=== PATIENT | female | born 1940 | race Two or more races ===

== ENCOUNTER 2025-03-29 18:34 | Inpatient (IN) | payer OTHER, MEDICAID ==
[~2025-03-29] VITALS: Ht 167.6 cm; Wt 68.2 kg
[~2025-03-29 18:34] MED LIST: ATOR20TA50 PO; DONE1TAB88 PO; LEVO125T7 PO; MEMA1TAB5 PO
--- NOTE | 2025-03-29 18:47 | ECG ---
[facility] Test Date: 2025-03-29 Test Time: 18:46:25 Pat Name: LORENA NAJERA Department: ED Room: Gender: F Slate Cutter Operator: JULIO : 1940 Requested By: J CARLOS LI Order Number: [id number] Reading MD: Alverto Briggs Measurements Intervals [place] Rate: 70 P: 39 [place]: 220 QRS: -14 QRSD: 92 T: 7 QT: 423 QTc: 457 Interpretive Statements Sinus rhythm Atrial premature complexes in couplets Prolonged [place] interval Low voltage, precordial leads Electronically Signed On 03-29-2025 21:17:46 PDT by Alverto Briggs Please click the below link to view image of tracing.
[2025-03-29] MEDS: SODIUM CHLORIDE 0.9% 1,000 ML IV ONE ×3 (19:06→21:00)
[2025-03-29 19:09] VITALS: TEMP 97.4
[2025-03-29 19:20] LABS: Basophils # (auto) 0 10 ^3/uL (0-0.2); Basophils % (auto) 0.4 % (0.0-2.0); Eosinophils # (auto) 0 10 ^3/uL (0-0.8); Eosinophils % (auto) 0.4 % (0.0-7.0); Hematocrit 41.1 % (36.0-46.0); Hemoglobin 13.9 g/dL (12.2-16.2); Lymphocytes # (auto) 0.9 10 ^3/uL (0.4-5.4); Lymphocytes % (auto) 8.8 % (10.0-50.0); Mean Corpuscular Hgb Conc. 33.8 g/dL (32.0-36.0); Mean Corpuscular Volume 94.7 fL (80.0-100.0); Monocytes # (auto) 0.5 10 ^3/uL (0-1.3); Monocytes % (auto) 4.5 % (0.0-12.0); Neutrophils % (auto) 85.9 % (37.0-80.0); Platelet Count (auto) 169 10^3/uL (140-450); Red Blood Cells 4.34 10^6/uL (4.0-5.20); Red Cell Distribution Width 13.6 % (11.8-14.3); White Blood Cell 10.5 10^3/uL (4.4-10.8)
--- NOTE | 2025-03-29 19:27 | ED.PDOC ---
History of Present Illness HPI Comments 85 y/o F is BIBA from home for 3x day history of ALOC. Per EMS report, family endorses on patient acting unusual from her usual baseline, stumbling and falling multiple times in addition to being lethargic and sleeping throughout the day. Patient has a history of dementia (A&Ox2 baseline), HLD, HTN, and hypo thyroidism. No recent falls, head injuries, or possible overdosing of her medications reported. Vitals were noted to have been within normal limits and stable, with exception of her blood pressure dropping to 86/49 2x minutes prior to arrival. Patient was started on IV fluids. No chest pain, shortness of breath, fever, chills, or further associated symptoms reported. Further history is limited, due to patient's current condition and absence of family/business center manager historians. Chief Complaint: ALOC Time Seen by MD: 18:40 Reviewed Notes: Nurses Notes, Lockstitch Hemmer Notes, Medications, Allergies Allergies: Coded Allergies: NO KNOWN ALLERGIES (Unverified , 03/29/25) Information Source: Patient, Emergency Med Personnel Mode of Arrival: EMS Severity: Moderate Timing: Days Duration: Since onset Prehospital treatment: 12 Lead EKG, Accucheck, Oil Spraying Machine Operator, IVF Review of Systems: REVIEW OF SYSTEMS: No fever, no chills, or fatigue HEENT: No sore throat, no earache, no congestion, no neck pain. Cardiac: No chest pain. No palpitations. Lungs: No shortness of breath, no cough. GI: No nausea, no vomiting, no diarrhea, no constipation, no abdominal pain : No dysuria, frequency, or urgency. No hematuria. Musculoskeletal: No joint pain , no joint swelling, no extremity edema. Skin: No rash, no itching. Neuro: ALOC, no headache, no dizziness, no weakness Vital Signs Vital Signs Date Time Temp Pulse Resp B/P (MAP) Pulse Ox O2 Delivery O2 Flow Rate FiO2 03/29/25 21:20 81 18 96 Room Air* 0 21 21 03/29/25 21:00 120/63 (82) 03/29/25 19:09 97.4 97.4 Physical Exam General: Awake, alert and oriented to self and time. Appears unwell. Skin: Skin in warm, dry and intact. Appropriate color for ethnicity. HEENT: The head is normocephalic and atraumatic. Conjunctivae are clear without exudates or hemorrhage. Sclera is non-icteric. EOM are intact. No signs of nystagmus. Eyelids are normal in appearance without swelling or lesions. Oral mucosa is pink and moist Neck: The neck is supple with normal range of motion. No JVD. Cardiac: Heart rate and rhythm are normal. No murmurs, gallops, or rubs are auscultated. Respiratory: No signs of respiratory distress. Lung sounds are clear in all lobes bilaterally without rales, rhonchi, or wheezes. Abdominal: Abdomen is soft, non-tender without distention, guarding or rigidity. Bowel sounds are present and normoactive in all four quadrants. Extremities: Upper and lower extremities are atraumatic in appearance without deformity or edema. Neurological: The patient is awake, alert and oriented to person, place, and time with normal speech. Speech is clear. There is no facial asymmetry. Psychiatric: Appropriate mood and affect. Good judgement and insight. Past Medical History PAST MEDICAL HISTORY: Dementia, High Lipids, HTN, Thyroid (hypothyroidism) Past Medical History (Other): Baseline is A&Ox2 (self and time) Surgical History: Unknown, Unobtainable TIP MENDER History: Unknown, Unobtainable Family History Family History: Unknown, Unobtainable Social History Smoker: Unknown, Unobtainable Alcohol: Unknown, Unobtainable Drugs: Unknown, Unobtainable Lives In: Assisted Care Was a procedure done? Was a procedure done?: No EKG EKG : Pulse Rate (adult): 70 [place]: Normal Cardiac Rhythm: NSR Block: None Hypertrophy: None ST: Normal Comments No STEMI Differential Dx Considerations may include: Differential diagnosis considered includes but not limited to intracranial hemorrhage, stroke, head injury, seizure, metabolic disturbance, electrolyte imbalance, infection, substance intoxication, psychiatric cause, other systemic illness, other X-Ray, Labs, Meds, VS Vital Signs Date Time Temp Pulse Resp B/P (MAP) Pulse Ox O2 Delivery O2 Flow Rate FiO2 03/29/25 21:20 81 18 96 Room Air* 0 21 21 03/29/25 21:00 84 12 120/63 (82) 95 03/29/25 20:00 89 03/29/25 19:27 70 03/29/25 19:09 97.4 77 16 138/59 (85) 94 97.4 6/11/25 18:46 70 03/29/25 18:44 97.8 67 16 86/49 (61) 94 97.8 Lab Test 03/29/25 21:39 03/29/25 20:50 03/29/25 20:12 03/29/25 19:36 Range/Units Prothrombin Time 10.5 9.3-11.8 sec Prothrombin Time INR 0.99 0.9-1.15 Troponin I High Sensitivity 210 *H </=34 ng/L Plasma/Serum Blood Alcohol < 3.0 <10 mg/dL Lactic Acid Level 2.9 *H 0.4-2.0 mmol/L Blood Gas Specimen Type Arterial Blood Gas Sample Site Left radial Blood Gas Patient Temperature 37.0 Arterial Blood Date Drawn [id number] Arterial Blood pH 7.392 7.350-7.450 Arterial Blood Partial Pressure CO2 34.1 32.0-45.0 mmHg Arterial Blood Partial Pressure O2 71.8 L 83.0-108.0 mmHg Arterial Blood HCO3 20.3 L 21.0-28.0 mmol/L Arterial Blood Oxygen Saturation 93.1 L 94.0-98.0 % Arterial Blood Base Excess -3.8 L -2.0-3.0 mmol/L Arterial Blood Oxyhemoglobin 91.9 L 94.0-98.0 % Arterial Blood Carboxyhemoglobin 0.8 0.5-1.5 % Arterial Blood Methemoglobin 0.5 0.0-1.5 % Capo Test Yes Blood Gas Total Hemoglobin 14.50 12.0-16.0 g/dL Blood Gas Modality Room air FiO2 % 21.0 Urine Color Light-yellow Yellow Urine Clarity Turbid H Clear Urine pH 7.0 5.0-9.0 Urine Specific [place] 1.007 1.001-1.035 Urine Protein 1+ H Negative Urine Ketones Negative Negative Urine Blood Trace H Negative /uL Urine Nitrite Negative Negative Urine Bilirubin Negative Negative Urine Urobilinogen Normal Negative mg/dL Urine Leukocyte Esterase Negative Negative /uL Urine RBC 3 0 - 4 /hpf Urine Microscopic WBC 15 H 0-5 /HPF Urine Squamous Epithelial Cells Few <5 /hpf Urine Amorphous Crystals Few None Seen /hpf Urine Bacteria Few H None Seen /hpf Urine Glucose Normal Normal mg/dL Urine Opiates Screen Neg NEGATIVE Urine Fentanyl Screen Neg NEGATIVE Urine Barbiturates Screen Neg NEGATIVE Urine Phencyclidine Screen Neg NEGATIVE Urine Amphetamines Screen Neg NEGATIVE Urine Benzodiazepines Screen Neg NEGATIVE Urine Cocaine Screen Neg NEGATIVE Urine Cannabinoids Screen Neg NEGATIVE Test 03/29/25 19:00 Range/Units White Blood Count 10.5 4.4-10.8 10^3/uL Red Blood Count 4.34 4.0-5.20 10^6/uL Hemoglobin 13.9 12.2-16.2 g/dL Hematocrit 41.1 36.0-46.0 % Mean Corpuscular Volume 94.7 80.0-100.0 fL Mean Corpuscular Hemoglobin 32.0 28.0-32.0 pg Mean Corpuscular Hemoglobin Concent 33.8 32.0-36.0 g/dL Red Cell Distribution Width 13.6 11.8-14.3 % Platelet Count 169 140-450 10^3/uL Mean Platelet Volume 8.4 6.9-10.8 fL Neutrophils (%) (Auto) 85.9 H 37.0-80.0 % Lymphocytes (%) (Auto) 8.8 L 10.0-50.0 % Monocytes (%) (Auto) 4.5 0.0-12.0 % Eosinophils (%) (Auto) 0.4 0.0-7.0 % Basophils (%) (Auto) 0.4 0.0-2.0 % Neutrophils # (Auto) 9.0 H 1.6-8.6 10 ^3/uL Lymphocytes # (Auto) 0.9 0.4-5.4 10 ^3/uL Monocytes # (Auto) 0.5 0-1.3 10 ^3/uL Eosinophils # (Auto) 0 0-0.8 10 ^3/uL Basophils # (Auto) 0 0-0.2 10 ^3/uL Nucleated Red Blood Cells 0.0 % Sodium Level 145 136-145 mmol/L Potassium Level 3.7 3.5-5.1 mmol/L Chloride Level 110 H 98-107 mmol/L Carbon Dioxide Level 21 20-31 mmol/L Anion Gap 14 5-15 Blood Urea Nitrogen 17 9-23 mg/dL Creatinine 1.11 H 0.550-1.02 mg/dL Glomerular Filtration Rate Calc 49 >90 mL/min BUN/Creatinine Ratio 15.3 10.0-20.0 Serum Glucose 108 H 74-106 mg/dL Lactic Acid Level 3.3 *H 0.4-2.0 mmol/L Calcium Level 10.3 8.7-10.4 mg/dL Magnesium Level 1.9 1.6-2.6 mg/dL Total Bilirubin 0.8 0.2-1.0 mg/dL Aspartate Amino Transferase (AST) 24 13-40 U/L Alanine Aminotransferase (ALT) 23 7-40 U/L Alkaline Phosphatase 98 46-116 U/L Troponin I High Sensitivity 106 *H </=34 ng/L B-Type Natriuretic Peptide 39.82 0-100 pg/mL Total Protein 7.2 5.7-8.2 g/dL Albumin 4.8 3.2-4.8 g/dL Lipase 50 12-53 U/L Thyroid Stimulating Hormone (TSH) 19.14 H 0.55-4.78 uIU/mL Current Medications Medications (Trade) Dose Ordered Sig/Alphonse Route Start Time Stop Time Status Last Admin Sodium Chloride 1,000 ml @ 1,000 mls/hr Q1H ONCE IV 03/29/25 18:45 03/29/25 19:44 DC 03/29/25 19:06 Vancomycin HCl 250 ml @ 250 mls/hr ONCE ONCE IV 03/29/25 20:00 03/29/25 20:59 DC 03/29/25 20:36 Ceftriaxone Sodium 50 ml @ 100 mls/hr ONCE ONCE IV 03/29/25 20:00 03/29/25 20:29 DC 03/29/25 20:05 Sodium Chloride 1,000 ml @ 1,000 mls/hr Q1H ONCE IV 03/29/25 20:00 03/29/25 20:59 DC 03/29/25 21:00 [place] [id number] Ph: [phone] DIAGNOSTIC IMAGING Diagnostic Imaging Report : [id number] Signed PATIENT: LORENA NAJERA ACCT: [id number] UNIT: [id number] : 1940 LOC: ER ROOM / BED: / AGE / SEX: 85 / F ADM STATUS: REG ER SERVICE 285 ORDERING PHYSICIAN: J CARLOS LI MD PROCEDURE(s): CXR1 - CHEST XRAY 1 VIEW REASON: AMS ORDER NUMBER(s): [id number], ACCESSION NUMBER(s): [id number] CHEST RADIOGRAPH Indication: AMS Technique: Single frontal view of the chest was obtained Comparison: None FINDINGS: Lines and Tubes: None Lungs: No focal consolidation. Bronchovascular crowding due to low lung volumes. Mild elevation of the right hemidiaphragm. Pleura: No effusion. No pneumothorax. Cardiomediastinal contours: Unremarkable Bones: No acute osseous abnormality. IMPRESSION: No acute cardiopulmonary disease. Mild elevation of the right hemidiaphragm. ATED BY: KAREN KAYE DO DICTATED DATE/TIME: 03/29/251952 SIGNED BY: KAREN KAYE DO SIGNED DATE/TIME: 03/29/251952 CC: EXAM: CT HEAD WITHOUT CONTRAST INDICATION: r/o ich, ams TECHNIQUE: CT of the head without intravenous contrast. Radiation Dose : 1. Head: CT Dose: CTDI volume is 63.15 mGy. Dose-length product is 1153.27 mGy*cm The dose indicators for CT are the volume Computed Tomography (CT) Dose Index (CTDIvol) and the Dose Length Product (DLP), and are measured in units of mGy and mGy-cm, respectively. These indicators are not patient dose, but values generated from the CT scanner acquisition factors. The report includes radiation exposure data for exposures received during this examination. COMPARISON: None FINDINGS: There is no evidence of acute intracranial hemorrhage, extra-axial collection, mass effect, midline shift, herniation or hydrocephalus. The ventricles, sulci and cisterns are age appropriate. The andersen-white differentiation is intact. Patchy periventricular and subcortical white matter hypoattenuation is nonspecific but may be related to small vessel ischemic disease. The visualized paranasal sinuses and mastoid air cells are clear. The surrounding soft tissues and osseous structures are unremarkable. Hyperostosis frontalis interna noted. IMPRESSION: 1. No acute intracranial abnormality. Radiation optimization: All CT scans at this facility use at least one of these dose optimization techniques: automated exposure control mA and/or kV adjustment per patient size (includes targeted exams where dose is matched to clinical indication) or iterative reconstruction. Time of 1ST Reevaluation: 19:10 Reevaluation 1ST: Unchanged Patient Education/Counseling: Other (Patient is altered) Family Education/Counseling: No Family Present Sepsis Sepsis Reasesment Focused Exam Orders: Laboratory Tests 03/29/25 19:00: Lactic Acid Level 3.3 03/29/25 20:50: Lactic Acid Level 2.9 Departure 1 Departure Time of Disposition: 20:00 Impression: Primary Impression: Altered mental status Additional Impressions: Elevated troponin NSTEMI (non-ST elevated myocardial infarction) Disposition: ADMITTED INPATIENT Condition: Stable Comments 75-year-old female who presents to the emergency department with lethargy altered mental status. Workup reveals elevated lactic acid. Antibiotics and IV fluids initiated for suspected sepsis. Troponin increasing. Case was discussed with Dr. Chino who initiated enoxaparin. Patient admitted to hospitalist service for further treatment, evaluation and monitoring. Extensive evaluation was performed in attempt to identify or rule out: (See differential diagnosis section) The following tests were ordered, and results were reviewed by me and discussed with patient: (See diagnostic results section) The following test were independently interpreted by me: EKG I reviewed and agreed with the following test results read by other providers: Chest x-ray I reviewed the following notes from the pt's past medical encounters: N/A Additional information was gathered from interviewing the following independent historians: EMS personnel Discussion of management or test interpretation with external physician/other qualified health rn progressive care unit: N/A Addressed an acute or chronic illness that poses a threat to life or bodily function: Lactic acidemia, NSTEMI , sepsis Decision regarding hospitalization or escalation of hospital level of care: Risk and benefits of admission for further treatment of patient's condition was considered. Due to patient's current clinical condition, high risk of decline and poor outcome if discharged and need for further inpatient management and monitoring, patient will be admitted to the hospital. Drug therapy requiring intensive monitoring for toxicity: N/A Parenteral controlled substances: N/A Decision regarding elective major surgery with identified patient or procedure risk factors: N/A Decision regarding emergency major surgery: N/A Decision not to resuscitate or to de-escalate care because of poor prognosis: N/A Diagnosis or treatment significantly limited by social determinants of health: N/A Critical Care Note Critical Care Time?: No Stability Stability form required: No Heart Score Heart Score: Heart Score Response (Comments) Value History N/A 0 EKG N/A 0 Age N/A 0 Risk Factors N/A 0 Troponin N/A 0 Total 0 I personally scribed for J CARLOS LI MD ([email or web address]) on 03/29/25 at 19:27. Electronically submitted by Jean-Claude Redd ([email or web address]). I personally scribed for J CARLOS LI MD ([email or web address]) on 03/29/25 at 20:04. Electronically submitted by Jean-Claude Redd ([email or web address]). J CARLOS LI MD Mar 29, 2025 19:27
[2025-03-29 19:48] LABS: Alanine Aminotransferase 23 U/L (7-40); Alkaline Phosphatase 98 U/L (46-116); Anion Gap 14 (5-15); BUN/Creatinine Ratio 15.3 (10.0-20.0); Blood Urea Nitrogen 17 mg/dL (9-23); Calcium 10.3 mg/dL (8.7-10.4); Carbon Dioxide 21 mmol/L (20-31); Magnesium 1.9 mg/dL (1.6-2.6); Potassium 3.7 mmol/L (3.5-5.1)
[2025-03-29 19:49] LABS: Total Protein 7.2 g/dL (5.7-8.2)
[2025-03-29 19:50] LABS: Aspartate Aminotransferase 24 U/L (13-40); Bilirubin, Total 0.8 mg/dL (0.2-1.0)
[2025-03-29 19:51] LABS: Albumin 4.8 g/dL (3.2-4.8); Chloride 110 mmol/L (98-107); Glucose 108 mg/dL (74-106); Sodium 145 mmol/L (136-145)
[2025-03-29 19:56] LABS: Lactic Acid w/Reflex 3.3 mmol/L (0.4-2.0)
--- NOTE | 2025-03-29 19:56 | DVH ---
CHEST RADIOGRAPH Indication: AMS Technique: Single frontal view of the chest was obtained Comparison: None FINDINGS: Lines and Tubes: None Lungs: No focal consolidation. Bronchovascular crowding due to low lung volumes. Mild elevation of t he right hemidiaphragm. Pleura: No effusion. No pneumothorax. Cardiomediastinal contours: Unremarkable Bones: No acute osseous abnormality. IMPRESSION: No acute cardiopulmonary disease. Mild elevation of the right hemidiaphragm.
[2025-03-29 20:03] LABS: Lipase 50 U/L (12-53)
[2025-03-29] MEDS: cefTRIAXone 1GM/50ML D5W 50 ML IV ONE (20:05)
[2025-03-29 20:16] LABS: Urine Amorphous Crystal FEW /hpf (None Seen); Urine Bacteria FEW /hpf (None Seen); Urine Blood TRACE /uL (Negative); Urine Clarity Turbid (Clear); Urine Color Light-Yellow (Yellow); Urine Protein, UAD 1+ (Negative); Urine Specific Gravity 1.007 (1.001-1.035); Urine Squamous Epithelial Cell FEW /hpf (<5); Urine Urobilinogen Normal (Negative); Urine WBC 15 /HPF (0-5)
[2025-03-29 20:18] LABS: Base Excess -3.8 mmol/L (-2.0-3.0)
[2025-03-29] MEDS: VANCOMYCIN 1GM/200ML PM 250 ML IV ONE (20:36)
[2025-03-29 21:20] VITALS: PULSE 81; RESP 18; O2SAT 96
[2025-03-29] MEDS ORDERED: SOD CHL 0.45% 1,000 ML IV ONE (22:30)
[2025-03-29] MEDS ORDERED: NITROGLYCERIN 0.4 MG SL TAB SL PRN (22:30)
[2025-03-29] MEDS: ENOXAPARIN SOD 60 MG/0.6 ML SYRINGE SC ONE (22:30)
[2025-03-29] MEDS ORDERED: MORPHINE SULFATE INJ 2 MG/ml SYRG IV PRN (22:30)
[2025-03-29 22:46] LABS: Amphetamine Screen, Urine Neg (NEGATIVE); Barbiturate Scree,Urine Neg (NEGATIVE); Benzodiazephine Screen, Urine Neg (NEGATIVE); Cannabinoid Screen, Urine Neg (NEGATIVE); Cocaine Screen, Urine Neg (NEGATIVE); Opiate Scree,Urine Neg (NEGATIVE); Phencyclidine Screen, Urine Neg (NEGATIVE)
[2025-03-29 22:47] LABS: INR 0.99 (0.9-1.15); Prothrombin Time 10.5 sec (9.3-11.8)
[2025-03-30] VITALS: BP 117/72; PULSE 88; RESP 16; O2SAT 98
--- NOTE | 2025-03-30 00:10 | DVH ---
EXAM: CT HEAD WITHOUT CONTRAST INDICATION: r/o ich, ams TECHNIQUE: CT of the head without intravenous contrast. Radiation Dose : 1. Head: CT Dose: CTDI volume is 63.15 mGy. Dose-length product is 1153.27 mGy*cm The dose indicators for CT are the volume Computed Tomography (CT) Dose Index (CTDIvol) and the Dose Length Product (DLP), and are measured in units of mGy and mGy-cm, respectively. These indicators are not patient dose, but values generated from the CT scanner acquisition factors. The report includes radiation exposure data for exposures received during this examination. COMPARISON: None FINDINGS: There is no evidence of acute intracranial hemorrhage, extra-axial collection, mass effect, midline s hift, herniation or hydrocephalus. The ventricles, sulci and cisterns are age appropriate. The andersen-white differentiation is intact. Patchy periventricular and subcortical white matter hypoattenuation is nonspecific but may be related to small vessel ischemic disease. The visualized paranasal sinuses and mastoid air cells are clear. The surrounding soft tissues and osseous structures are unremarkable. Hyperostosis frontalis interna noted. IMPRESSION: 1. No acute intracranial abnormality. Radiation optimization: All CT scans at this facility use at least one of these dose optimization ike hniques: automated exposure control mA and/or kV adjustment per patient size (includes targeted exam s where dose is matched to clinical indication) or iterative reconstruction.
--- NOTE | 2025-03-30 00:38 | DVHHP2 ---
Admitting Diagnosis: AMS NSTEMI History of Present Illness HPI 85 y.o. female with HTN, dementia, hypothyroidism was brought to the ER with AMS. Family informed EMS that she has been lethargic, sleepy and unstable all day. Family informed that she was worse than usually. Paramedics documented BP 86/49 prior to arrival. Patient was given IVF. Patient herself is a poor historian and couldn't provide additional information. In the ER her troponin was found to be elevated with progression. Past Medical History Cardiac: HTN, Hyperlipidemia Endocrine: Hypothyroidism Review of Systems Constitutional: Weakness Psychiatric: Confusion H&P Exam Vital Signs Vital Signs Date Time Temp Pulse Resp B/P (MAP) Pulse Ox O2 Delivery O2 Flow Rate FiO2 03/29/25 21:20 81 18 96 Room Air* 0 21 21 03/29/25 21:00 120/63 (82) 03/29/25 19:09 97.4 97.4 General Appeara: Mild distress Head Exam: Normal inspection Neck Exam: Non-tender Eye Exam: bilateral eye PERRL, bilateral eye EOMI Cardiovascular/Chest: Regular rate Abdominal Exam: Normal bowel sounds Neuro/Mental St: Alert, Disoriented Labs/Xrays Labs Test 03/29/25 22:32 03/29/25 21:39 03/29/25 20:50 03/29/25 20:12 Range/Units Troponin I High Sensitivity 211 *H </=34 ng/L Prothrombin Time 10.5 9.3-11.8 sec Prothrombin Time INR 0.99 0.9-1.15 Plasma/Serum Blood Alcohol < 3.0 <10 mg/dL Lactic Acid Level 2.9 *H 0.4-2.0 mmol/L Blood Gas Specimen Type Arterial Blood Gas Sample Site Left radial Blood Gas Patient Temperature 37.0 Arterial Blood Date Drawn [id number] Arterial Blood pH 7.392 7.350-7.450 Arterial Blood Partial Pressure CO2 34.1 32.0-45.0 mmHg Arterial Blood Partial Pressure O2 71.8 L 83.0-108.0 mmHg Arterial Blood HCO3 20.3 L 21.0-28.0 mmol/L Arterial Blood Oxygen Saturation 93.1 L 94.0-98.0 % Arterial Blood Base Excess -3.8 L -2.0-3.0 mmol/L Arterial Blood Oxyhemoglobin 91.9 L 94.0-98.0 % Arterial Blood Carboxyhemoglobin 0.8 0.5-1.5 % Arterial Blood Methemoglobin 0.5 0.0-1.5 % Capo Test Yes Blood Gas Total Hemoglobin 14.50 12.0-16.0 g/dL Blood Gas Modality Room air FiO2 % 21.0 Test 03/29/25 19:36 03/29/25 19:00 Range/Units Urine Color Light-yellow Yellow Urine Clarity Turbid H Clear Urine pH 7.0 5.0-9.0 Urine Specific [place] 1.007 1.001-1.035 Urine Protein 1+ H Negative Urine Ketones Negative Negative Urine Blood Trace H Negative /uL Urine Nitrite Negative Negative Urine Bilirubin Negative Negative Urine Urobilinogen Normal Negative mg/dL Urine Leukocyte Esterase Negative Negative /uL Urine RBC 3 0 - 4 /hpf Urine Microscopic WBC 15 H 0-5 /HPF Urine Squamous Epithelial Cells Few <5 /hpf Urine Amorphous Crystals Few None Seen /hpf Urine Bacteria Few H None Seen /hpf Urine Glucose Normal Normal mg/dL Urine Opiates Screen Neg NEGATIVE Urine Fentanyl Screen Neg NEGATIVE Urine Barbiturates Screen Neg NEGATIVE Urine Phencyclidine Screen Neg NEGATIVE Urine Amphetamines Screen Neg NEGATIVE Urine Benzodiazepines Screen Neg NEGATIVE Urine Cocaine Screen Neg NEGATIVE Urine Cannabinoids Screen Neg NEGATIVE White Blood Count 10.5 4.4-10.8 10^3/uL Red Blood Count 4.34 4.0-5.20 10^6/uL Hemoglobin 13.9 12.2-16.2 g/dL Hematocrit 41.1 36.0-46.0 % Mean Corpuscular Volume 94.7 80.0-100.0 fL Mean Corpuscular Hemoglobin 32.0 28.0-32.0 pg Mean Corpuscular Hemoglobin Concent 33.8 32.0-36.0 g/dL Red Cell Distribution Width 13.6 11.8-14.3 % Platelet Count 169 140-450 10^3/uL Mean Platelet Volume 8.4 6.9-10.8 fL Neutrophils (%) (Auto) 85.9 H 37.0-80.0 % Lymphocytes (%) (Auto) 8.8 L 10.0-50.0 % Monocytes (%) (Auto) 4.5 0.0-12.0 % Eosinophils (%) (Auto) 0.4 0.0-7.0 % Basophils (%) (Auto) 0.4 0.0-2.0 % Neutrophils # (Auto) 9.0 H 1.6-8.6 10 ^3/uL Lymphocytes # (Auto) 0.9 0.4-5.4 10 ^3/uL Monocytes # (Auto) 0.5 0-1.3 10 ^3/uL Eosinophils # (Auto) 0 0-0.8 10 ^3/uL Basophils # (Auto) 0 0-0.2 10 ^3/uL Nucleated Red Blood Cells 0.0 % Sodium Level 145 136-145 mmol/L Potassium Level 3.7 3.5-5.1 mmol/L Chloride Level 110 H 98-107 mmol/L Carbon Dioxide Level 21 20-31 mmol/L Anion Gap 14 5-15 Blood Urea Nitrogen 17 9-23 mg/dL Creatinine 1.11 H 0.550-1.02 mg/dL Glomerular Filtration Rate Calc 49 >90 mL/min BUN/Creatinine Ratio 15.3 10.0-20.0 Serum Glucose 108 H 74-106 mg/dL Calcium Level 10.3 8.7-10.4 mg/dL Magnesium Level 1.9 1.6-2.6 mg/dL Total Bilirubin 0.8 0.2-1.0 mg/dL Aspartate Amino Transferase (AST) 24 13-40 U/L Alanine Aminotransferase (ALT) 23 7-40 U/L Alkaline Phosphatase 98 46-116 U/L B-Type Natriuretic Peptide 39.82 0-100 pg/mL Total Protein 7.2 5.7-8.2 g/dL Albumin 4.8 3.2-4.8 g/dL Lipase 50 12-53 U/L Thyroid Stimulating Hormone (TSH) 19.14 H 0.55-4.78 uIU/mL Assessment/Plan Problem List: (1) NSTEMI (non-ST elevated myocardial infarction) (2) Altered mental status Plan ECHO, Lovenox, cardiology consult, IVF DEMETRIA MACKENZIE MD Mar 30, 2025 00:38
--- NOTE | 2025-03-30 12:22 | DVHINCON2 ---
Allergies: Coded Allergies: NO KNOWN ALLERGIES (Unverified , 03/29/25) Current Medications Current Medications Medications (Trade) Dose Ordered Sig/Alphonse Route PRN Reason Start Time Stop Time Status Last Admin Nitroglycerin (Ntrostat Sublingual) 0.4 mg Q5MINP PRN SL FOR CHEST PAIN 03/29/25 22:30 Morphine Sulfate 2 mg Q30M PRN IV FOR CHEST PAIN 03/29/25 22:30 Vital Signs Vital Signs Date Time Temp Pulse Resp B/P (MAP) Pulse Ox O2 Delivery O2 Flow Rate FiO2 03/30/25 00:00 88 16 117/72 (87) 98 03/29/25 21:20 Room Air* 0 21 21 03/29/25 19:09 97.4 97.4 Labs/Diagnostic Data Labs Test 03/30/25 00:40 03/29/25 21:39 03/29/25 20:50 03/29/25 20:12 Range/Units Troponin I High Sensitivity 182 *H </=34 ng/L Prothrombin Time 10.5 9.3-11.8 sec Prothrombin Time INR 0.99 0.9-1.15 Plasma/Serum Blood Alcohol < 3.0 <10 mg/dL Lactic Acid Level 2.9 *H 0.4-2.0 mmol/L Blood Gas Specimen Type Arterial Blood Gas Sample Site Left radial Blood Gas Patient Temperature 37.0 Arterial Blood Date Drawn [id number] Arterial Blood pH 7.392 7.350-7.450 Arterial Blood Partial Pressure CO2 34.1 32.0-45.0 mmHg Arterial Blood Partial Pressure O2 71.8 L 83.0-108.0 mmHg Arterial Blood HCO3 20.3 L 21.0-28.0 mmol/L Arterial Blood Oxygen Saturation 93.1 L 94.0-98.0 % Arterial Blood Base Excess -3.8 L -2.0-3.0 mmol/L Arterial Blood Oxyhemoglobin 91.9 L 94.0-98.0 % Arterial Blood Carboxyhemoglobin 0.8 0.5-1.5 % Arterial Blood Methemoglobin 0.5 0.0-1.5 % Capo Test Yes Blood Gas Total Hemoglobin 14.50 12.0-16.0 g/dL Blood Gas Modality Room air FiO2 % 21.0 Test 03/29/25 19:36 03/29/25 19:00 Range/Units Urine Color Light-yellow Yellow Urine Clarity Turbid H Clear Urine pH 7.0 5.0-9.0 Urine Specific Darragh 1.007 1.001-1.035 Urine Protein 1+ H Negative Urine Ketones Negative Negative Urine Blood Trace H Negative /uL Urine Nitrite Negative Negative Urine Bilirubin Negative Negative Urine Urobilinogen Normal Negative mg/dL Urine Leukocyte Esterase Negative Negative /uL Urine RBC 3 0 - 4 /hpf Urine Microscopic WBC 15 H 0-5 /HPF Urine Squamous Epithelial Cells Few <5 /hpf Urine Amorphous Crystals Few None Seen /hpf Urine Bacteria Few H None Seen /hpf Urine Glucose Normal Normal mg/dL Urine Opiates Screen Neg NEGATIVE Urine Fentanyl Screen Neg NEGATIVE Urine Barbiturates Screen Neg NEGATIVE Urine Phencyclidine Screen Neg NEGATIVE Urine Amphetamines Screen Neg NEGATIVE Urine Benzodiazepines Screen Neg NEGATIVE Urine Cocaine Screen Neg NEGATIVE Urine Cannabinoids Screen Neg NEGATIVE White Blood Count 10.5 4.4-10.8 10^3/uL Red Blood Count 4.34 4.0-5.20 10^6/uL Hemoglobin 13.9 12.2-16.2 g/dL Hematocrit 41.1 36.0-46.0 % Mean Corpuscular Volume 94.7 80.0-100.0 fL Mean Corpuscular Hemoglobin 32.0 28.0-32.0 pg Mean Corpuscular Hemoglobin Concent 33.8 32.0-36.0 g/dL Red Cell Distribution Width 13.6 11.8-14.3 % Platelet Count 169 140-450 10^3/uL Mean Platelet Volume 8.4 6.9-10.8 fL Neutrophils (%) (Auto) 85.9 H 37.0-80.0 % Lymphocytes (%) (Auto) 8.8 L 10.0-50.0 % Monocytes (%) (Auto) 4.5 0.0-12.0 % Eosinophils (%) (Auto) 0.4 0.0-7.0 % Basophils (%) (Auto) 0.4 0.0-2.0 % Neutrophils # (Auto) 9.0 H 1.6-8.6 10 ^3/uL Lymphocytes # (Auto) 0.9 0.4-5.4 10 ^3/uL Monocytes # (Auto) 0.5 0-1.3 10 ^3/uL Eosinophils # (Auto) 0 0-0.8 10 ^3/uL Basophils # (Auto) 0 0-0.2 10 ^3/uL Nucleated Red Blood Cells 0.0 % Sodium Level 145 136-145 mmol/L Potassium Level 3.7 3.5-5.1 mmol/L Chloride Level 110 H 98-107 mmol/L Carbon Dioxide Level 21 20-31 mmol/L Anion Gap 14 5-15 Blood Urea Nitrogen 17 9-23 mg/dL Creatinine 1.11 H 0.550-1.02 mg/dL Glomerular Filtration Rate Calc 49 >90 mL/min BUN/Creatinine Ratio 15.3 10.0-20.0 Serum Glucose 108 H 74-106 mg/dL Calcium Level 10.3 8.7-10.4 mg/dL Magnesium Level 1.9 1.6-2.6 mg/dL Total Bilirubin 0.8 0.2-1.0 mg/dL Aspartate Amino Transferase (AST) 24 13-40 U/L Alanine Aminotransferase (ALT) 23 7-40 U/L Alkaline Phosphatase 98 46-116 U/L B-Type Natriuretic Peptide 39.82 0-100 pg/mL Total Protein 7.2 5.7-8.2 g/dL Albumin 4.8 3.2-4.8 g/dL Lipase 50 12-53 U/L Thyroid Stimulating Hormone (TSH) 19.14 H 0.55-4.78 uIU/mL BERNARDO ALMAZAN MD Mar 30, 2025 12:22
== END 2025-03-30 02:33 | disposition left against medical advice (07) | DRG 282 ==
LOC: EDBD 18:34 → ER 18:38 → OVERFLOW 22:20
PROVIDERS: ADMIT Internal Medicine; ATTEND Internal Medicine
DX: I21.4 Non-ST elevation (NSTEMI) myocardial infarction (principal); E78.5 Hyperlipidemia, unspecified; Z53.29 Procedure and treatment not carried out because of patient's decision for other reasons; E03.9 Hypothyroidism, unspecified; I10 Essential (primary) hypertension; F03.90 Unspecified dementia, unspecified severity, without behavioral disturbance, psychotic disturbance, mood disturbance, and anxiety; Z79.899 Other long term (current) drug therapy
CPT/HCPCS: 36415; 36600; 70450; 71045; 80053; 80307; 80320; 81001; 82805; 83605; 83690; 83735; 83880; 84443; 84484; 85025; 85610; 87040; 93005; 96361; 96365; G0378

== ENCOUNTER 2025-03-31 15:12 | Observation (INO) | payer OTHER, MEDICAID ==
[~2025-03-31] VITALS: Ht 157.5 cm; Wt 75.4 kg
--- NOTE | 2025-03-31 15:45 | ED.PDOC ---
Altered Mental Status HPI Comments This is a 85 year old female BIB son presents to the ED with chief complaint of ALOC. Son reports that the patient was seen 2 days ago for the same symptoms of ALOC with the patient not acting herself and acting generally weak. Son relays that the patient ran out of the ER 2 days ago and did not get admitted. Son states that he was told that the patient may have a possible infection, but he is unsure of the source. Patient unable to answer questions at this time, but son denies any further symptoms. Chief Complaint: ALOC Time Seen by MD: 15:30 Reviewed Notes: Nurses Notes, Medications, Allergies Allergies: Coded Allergies: NO KNOWN ALLERGIES (Unverified , 03/29/25) Home Meds Reported Medications Memantine Hydrochloride (Memantine HCl) 10 Mg Tab, 1 TAB PO DAILY for 90 Days, #90 03/30/25 Levothyroxine Sodium (Levothyroxine Sodium) 125 Mcg Tab, 1 TAB PO DAILY for 90 Days, #90 03/30/25 Donepezil Hydrochloride (DONEPEZIL HCL) 10 Mg Tab, 1 TAB PO DAILY for 90 Days, #90 03/30/25 Atorvastatin Calcium (ATORVASTATIN CALCIUM) 20 Mg Tab, 1 TAB PO DAILY for 90 Days, #90 03/30/25 Information Source: Patient, Relative (Child) Mode of Arrival: Wheelchair Severity: Unable to Care for Self, Unresponsive Timing: Days Duration: Since onset Prehospital treatment: None Quality: Decreased Alertness, Change in Behavior, Confusion Recent: None History of: Dementia Associated Signs and Symptoms: None Past Medical History PAST MEDICAL HISTORY: Dementia, High Lipids, HTN, Thyroid Surgical History: Denies all surgeries DISCOVERY MANAGER History: Denies all DISCOVERY MANAGER Hx Family History Family History: Reviewed,noncontributory to illness Social History Smoker: Non-Smoker Alcohol: Denies ETOH Use Drugs: Denies Drug Use Lives In: Home, Assisted Care Constitutional: denies: chills, diaphoresis, fatigue, fever, malaise, sweats, weakness, others EENTM: denies: blurred vision, double vision, ear bleeding, ear discharge, ear drainage, ear pain, ear ringing, eye pain, eye redness, hearing loss, mouth pain, mouth swelling, nasal discharge, nose bleeding, nose congestion, nose pain, photophobia, tearing, throat pain, throat swelling, voice changes, others Respiratory: denies: cough, hemoptysis, orthopnea, SOB at rest, shortness of breath, SOB with excertion, stridor, wheezing, others Cardiovascular: denies: chest pain, dizzy spells, diaphoresis, Dyspnea on exertion, edema, irregular heart beat, left arm pain, lightheadedness, palpitations, PND, syncope, others Gastrointestinal: denies: abdomen distended, abdominal pain, blood streaked bowels, constipated, diarrhea, dysphagia, difficulty swallowing, hematemesis, melena, nausea, poor appetite, poor fluid intake, rectal bleeding, rectal pain, vomiting, others Genitourinary: denies: abnormal vagina bleeding, burning, dyspareunia, dysuria, flank pain, frequency, hematuria, incontinence, pain, , vagina discharge, urgency, others Neurological: denies: dizziness, fainting, headache, left sided numbness, left sided weakness, numbness, paresthesia, pre-existing deficit, right sided numbness, right sided weakness, seizure, speech problems, tingling, tremors, weakness, others Musculoskeletal: denies: back pain, gout, joint pain, joint swelling, muscle pain, muscle stiffness, neck pain, others Integumetry: denies: bruises, change in color, change in hair/nails, dryness, laceration, lesions, lumps, rash, wounds, others Allergic/Immunocompromised: denies: Difficulty Healing, Frequent Infections, Hives, Itching, others Hematologic/Lymphatic: denies: anemia, blood clots, easy bleeding, easy bruising, swollen glands, others Endocrine: denies: excessive hunger, excessive sweating, excessive thirst, excessive urination, flushing, intolerance to cold, intolerance to heat, unexplained weight gain, unexplained weight loss, others Psychiatric: denies: anxiety, bipolar disorder, depression, hopeless, panic disorder, schizophrenia, sleepless, suicidal, others Unable to Obtain due to: Altered Mental Status, Dementia All Other Systems: Reviewed and Negative Physical Exam General Appearance: No Apparent Distress, Normal HEENT: Normal ENT Inspection, Pharynx Normal, TMs Normal Neck: Full Range of Motion, Non-Tender, Normal, Normal Inspection Respiratory: Chest Non-Tender, Lungs Clear, No Accessory Muscle Use, No Res piratory Distress, Normal Breath Sounds Cardiovascular: No Edema, No JVD, No Murmur, No Gallop, Normal Peripheral Pulses, Regular Rate/Rhythm Breast Exam: Deferred Gastrointestinal: No Organomegaly, Non Tender, No Pulsatile Mass, Normal Bowel Sounds, Soft Genitalia: Deferred Pelvic: Deferred Rectal: Deferred Extremities: No calf tenderness, Normal capillary refill, Normal inspection, Normal range of motion, Non-tender, No pedal edema Musculoskeletal : Apperance: Normal Neurologic: Alert, professor of business II-XII nml as Tested, No Motor Deficits, Normal Affect, Normal Mood, No Sensory Deficits Cerebellar Function: Normal Reflexes: Normal Skin: Dry, Normal Color, Warm Lymphatic: No Adenopathy Was a procedure done? Was a procedure done?: No Differential Diagnosis (ALOC) Differential Diagnosis: Dehydration, Hypoglycemia, Encephalopathy, CVA, Other (UTI) X-Ray, Labs, Meds, VS Vital Signs Date Time Temp Pulse Resp B/P (MAP) Pulse Ox O2 Delivery O2 Flow Rate FiO2 03/31/25 15:41 70 03/31/25 15:25 97.4 71 20 128/72 (90) 91 97.4 Lab Test 03/31/25 16:20 03/31/25 15:20 Range/Units White Blood Count 5.9 # 4.4-10.8 10^3/uL Red Blood Count 4.37 4.0-5.20 10^6/uL Hemoglobin 13.9 12.2-16.2 g/dL Hematocrit 40.9 36.0-46.0 % Mean Corpuscular Volume 93.5 80.0-100.0 fL Mean Corpuscular Hemoglobin 31.9 28.0-32.0 pg Mean Corpuscular Hemoglobin Concent 34.1 32.0-36.0 g/dL Red Cell Distribution Width 13.7 11.8-14.3 % Platelet Count 237 140-450 10^3/uL Mean Platelet Volume 7.6 6.9-10.8 fL Neutrophils (%) (Auto) 54.1 37.0-80.0 % Lymphocytes (%) (Auto) 35.1 10.0-50.0 % Monocytes (%) (Auto) 7.8 0.0-12.0 % Eosinophils (%) (Auto) 2.0 0.0-7.0 % Basophils (%) (Auto) 1.0 0.0-2.0 % Neutrophils # (Auto) 3.2 1.6-8.6 10 ^3/uL Lymphocytes # (Auto) 2.1 0.4-5.4 10 ^3/uL Monocytes # (Auto) 0.5 0-1.3 10 ^3/uL Eosinophils # (Auto) 0.1 0-0.8 10 ^3/uL Basophils # (Auto) 0.1 0-0.2 10 ^3/uL Nucleated Red Blood Cells 0.1 % Sodium Level 143 136-145 mmol/L Potassium Level 3.6 3.5-5.1 mmol/L Chloride Level 109 H 98-107 mmol/L Carbon Dioxide Level 23 20-31 mmol/L Anion Gap 11 5-15 Blood Urea Nitrogen 15 9-23 mg/dL Creatinine 1.31 H 0.550-1.02 mg/dL Glomerular Filtration Rate Calc 40 >90 mL/min BUN/Creatinine Ratio 11.5 10.0-20.0 Serum Glucose 91 74-106 mg/dL Lactic Acid Level 1.4 0.4-2.0 mmol/L Calcium Level 9.3 8.7-10.4 mg/dL Total Bilirubin 1.0 0.2-1.0 mg/dL Aspartate Amino Transferase (AST) 31 <34 U/L Alanine Aminotransferase (ALT) 24 7-40 U/L Alkaline Phosphatase 94 46-116 U/L Troponin I High Sensitivity 46 *H </=34 ng/L Total Protein 6.8 5.7-8.2 g/dL Albumin 4.6 3.2-4.8 g/dL POC Glucose 98 70-106 mg/dl Time of 1ST Reevaluation: 16:30 Reevaluation 1ST: Unchanged Patient Education/Counseling: Diagnosis, Treatment Family Education/Counseling: Diagnosis, Treatment Additional Information Previous visits reviewed: 03/29/25 for ALOC The following tests were ordered, and results were reviewed by me: CBC, CMP, Lactic, Troponin, UA, Blood Culture, Chest XR, Head CT Additional Information was gathered from interviewing the following independent historians: None I reviewed and agreed with the following test results read by other providers: None I discussed treatment and results with medical personnel and: patient Comprehensive systems review obtained and negative except for what is stated in the HPI. Sepsis Sepsis Reasesment Focused Exam Orders: Laboratory Tests 03/31/25 16:20: Lactic Acid Level 1.4 Departure 1 Departure Time of Disposition: 17:32 (Patient re presents with a worsening altered mental status. Patient with a eloped from the hospital yesterday. Patient with concern for urinary tract infection. We will admit patient for further workup and expert consultation) Impression: Primary Impression: Metabolic encephalopathy Additional Impression: Complicated UTI (urinary tract infection) Disposition: ADMITTED INPATIENT Admit to: Med Surg Condition: Serious Critical Care Note Critical Care Time?: No Stability Stability form required: No Heart Score Heart Score: Heart Score Response (Comments) Value History Highly Suspicious 2 EKG Normal 0 Age >65 2 Risk Factors >3 or Hx ASHD 2 Troponin >3 x's Normal limit 2 Total 8 I personally scribed for SANDER MILLER MD ([email or web address]) on 03/31/25 at 15:45. Electronically submitted by Marcos Hager ([email or web address]). SANDER MILLER MD Mar 31, 2025 15:45
--- NOTE | 2025-03-31 15:56 | DVH ---
CLINICAL INFORMATION: Altered mental status. TECHNIQUE: Axial imaging was obtained through the brain without contrast. Coronal and sagittal reform atted images were obtained, reviewed, and stored. Images were reviewed in brain and bone windows. Al l CT scans at this medical facility are performed using dose modulation techniques as appropriate to a performed exam including the following: Automated exposure control was utilized; adjustment of the MA and/or KV according to patient size; and use of iterative reconstruction technique. CTDIvol = 62.6 4 mGy DLP = 1108.71 mGy-cm COMPARISON: CT HEAD WITHOUT CONTRAST on DOS: 03/29/25 FINDINGS: There is no acute intracranial hemorrhage. No mass effect or midline shift. Scattered areas of hypoattenuation are seen in the periventricular and subcortical white matter, which are nonspecif ic but most likely sequelae of small vessel ischemic disease. The ventricles and sulci are within nor mal limits in size for age. Basal cisterns are patent. The calvarium is unremarkable. Paranasal sinu ses and mastoid air cells are clear. IMPRESSION: 1. No CT evidence of acute intracranial abnormality. 2. Nonacute findings as described above.
--- NOTE | 2025-03-31 16:00 | DVH ---
CHEST RADIOGRAPH Indication: ams Technique: Single frontal view of the chest was obtained Comparison: XY CHEST XRAY 1 VIEW on DOS: 03/29/25 FINDINGS: Lines and Tubes: None Lungs: No focal consolidation. Pleura: No effusion. No pneumothorax. Cardiomediastinal contours: Unremarkable Bones: No acute osseous abnormality. IMPRESSION: 1. No acute cardiopulmonary disease.
[2025-03-31 16:30] VITALS: PULSE 68; RESP 16; O2SAT 95
[2025-03-31 16:39] LABS: Basophils # (auto) 0.1 10 ^3/uL (0-0.2); Eosinophils # (auto) 0.1 10 ^3/uL (0-0.8); Hematocrit 40.9 % (36.0-46.0); Hemoglobin 13.9 g/dL (12.2-16.2); Lymphocytes # (auto) 2.1 10 ^3/uL (0.4-5.4); Lymphocytes % (auto) 35.1 % (10.0-50.0); Mean Corpuscular Hemoglobin 31.9 pg (28.0-32.0); Mean Corpuscular Hgb Conc. 34.1 g/dL (32.0-36.0); Mean Corpuscular Volume 93.5 fL (80.0-100.0); Monocytes # (auto) 0.5 10 ^3/uL (0-1.3); Monocytes % (auto) 7.8 % (0.0-12.0); Neutrophils # (auto) 3.2 10 ^3/uL (1.6-8.6); Neutrophils % (auto) 54.1 % (37.0-80.0); Nucleated Red Blood Cells % 0.1 %; Platelet Count (auto) 237 10^3/uL (140-450); Red Blood Cells 4.37 10^6/uL (4.0-5.20); Red Cell Distribution Width 13.7 % (11.8-14.3); White Blood Cell 5.9 10^3/uL (4.4-10.8)
[2025-03-31 16:53] LABS: Alanine Aminotransferase 24 U/L (7-40); Albumin 4.6 g/dL (3.2-4.8); Alkaline Phosphatase 94 U/L (46-116); Anion Gap 11 (5-15); Aspartate Aminotransferase 31 U/L (<34); BUN/Creatinine Ratio 11.5 (10.0-20.0); Blood Urea Nitrogen 15 mg/dL (9-23); Calcium 9.3 mg/dL (8.7-10.4); Carbon Dioxide 23 mmol/L (20-31); Glucose 91 mg/dL (74-106); Potassium 3.6 mmol/L (3.5-5.1); Sodium 143 mmol/L (136-145); Total Protein 6.8 g/dL (5.7-8.2)
[2025-03-31 16:55] LABS: Chloride 109 mmol/L (98-107)
[2025-03-31] MEDS ORDERED: HYDROcodone-ACET 5/325MG TAB PO PRN (18:45)
[2025-03-31] MEDS ORDERED: MORPHINE SULFATE INJ 2 MG/ml SYRG IV PRN ×2 (18:45)
[2025-03-31] MEDS ORDERED: ACETAMINOPHEN 325 MG TAB PO PRN (18:45)
[2025-03-31] MEDS ORDERED: NITROGLYCERIN 0.4 MG SL TAB SL PRN (18:45)
[2025-03-31] MEDS: SODIUM CHLORIDE 0.9% 1,000 ML IV SCH (18:46)
[2025-03-31] MEDS: cefTRIAXone 1GM/50ML D5W 50 ML IV ONE (19:05)
[2025-03-31 19:45] VITALS: PULSE 58; RESP 17; O2SAT 94
[2025-03-31 21:32] LABS: Urine Bacteria None Seen /hpf (None Seen)
[2025-03-31 21:46] LABS: Urine Blood TRACE /uL (Negative); Urine Clarity Clear (Clear); Urine Color Light-Yellow (Yellow); Urine Hyaline Cast FEW /lpf (0 - 2); Urine Protein, UAD Negative (Negative); Urine Specific Gravity 1.012 (1.001-1.035); Urine Squamous Epithelial Cell FEW /hpf (<5); Urine Urobilinogen Normal (Negative); Urine WBC 1 /HPF (0-5)
[2025-03-31 21:57] VITALS: BP 150/79; PULSE 66; RESP 18; TEMP 97.1; O2SAT 96
[2025-03-31 22:12] VITALS: BP 150/79; PULSE 66; RESP 18; TEMP 97.1; O2SAT 97
[2025-04-01 05:00] VITALS: BP 113/64; PULSE 70; RESP 18; TEMP 97.3; O2SAT 96
[2025-04-01 08:06] LABS: Basophils # (auto) 0 10 ^3/uL (0-0.2); Basophils % (auto) 0.8 % (0.0-2.0); Eosinophils # (auto) 0.2 10 ^3/uL (0-0.8); Eosinophils % (auto) 3.2 % (0.0-7.0); Hematocrit 39.3 % (36.0-46.0); Hemoglobin 13.4 g/dL (12.2-16.2); Lymphocytes # (auto) 2.1 10 ^3/uL (0.4-5.4); Lymphocytes % (auto) 36.3 % (10.0-50.0); Mean Corpuscular Hemoglobin 31.7 pg (28.0-32.0); Mean Corpuscular Hgb Conc. 34.1 g/dL (32.0-36.0); Mean Corpuscular Volume 93.1 fL (80.0-100.0); Monocytes # (auto) 0.5 10 ^3/uL (0-1.3); Monocytes % (auto) 8.6 % (0.0-12.0); Neutrophils # (auto) 2.9 10 ^3/uL (1.6-8.6); Neutrophils % (auto) 51.1 % (37.0-80.0); Nucleated Red Blood Cells % 0.1 %; Platelet Count (auto) 221 10^3/uL (140-450); Red Blood Cells 4.22 10^6/uL (4.0-5.20); Red Cell Distribution Width 13.7 % (11.8-14.3); White Blood Cell 5.8 10^3/uL (4.4-10.8)
[2025-04-01 08:13] LABS: Alanine Aminotransferase 20 U/L (7-40); Albumin 4.1 g/dL (3.2-4.8); Alkaline Phosphatase 81 U/L (46-116); Anion Gap 13 (5-15); Aspartate Aminotransferase 28 U/L (<34); BUN/Creatinine Ratio 11.2 (10.0-20.0); Blood Urea Nitrogen 12 mg/dL (9-23); Calcium 9.2 mg/dL (8.7-10.4); Carbon Dioxide 22 mmol/L (20-31); Glucose 83 mg/dL (74-106); Total Protein 6.4 g/dL (5.7-8.2)
[2025-04-01 08:15] LABS: Chloride 111 mmol/L (98-107); Potassium 3.4 mmol/L (3.5-5.1); Sodium 146 mmol/L (136-145)
[2025-04-01 09:00] VITALS: BP 104/58; PULSE 69; RESP 18; TEMP 97.8; O2SAT 96
[2025-04-01] MEDS: ENOXAPARIN SOD 40 MG/0.4 ML SYRINGE SC SCH (09:30)
--- NOTE | 2025-04-01 10:40 | DVHHP2 ---
Admitting Diagnosis: Metabolic Encephalopathy History of Present Illness HPI Patient is an 85-year-old male with past medical history of dementia who was brought in after being found down in her yard by her family and confused. Patient was only alert and oriented to herself. Patient had a prior hospital visit 1 day prior for similar confusion. She had eloped at that time before receiving further medical care. She was treated for UTI at that time and noted some improvement after receiving IV antibiotics. Patient subsequently was noted to deteriorate neurologically and subsequently presented to the ER after aforementioned events. Patient arrived to the ER with vitals within normal limits. CBC did not reveal any leukocytosis. Chemistry panel was notable for YUE with creatinine of 1.31. Troponin was elevated at 46. Patient denied having any chest pain prior to her hospitalization or after. Urine showed some WBC cells which was noted to be positive during prior hospital visit as well. Patient was admitted for further evaluation for altered mental status and for treatment of UTI. Home Meds Active Scripts Ciprofloxacin Hcl (Ciprofloxacin Hcl) 500 Mg Tab, 1 TAB PO BID, #10 TAB 0 Re fills Prov:ARLENE ESCAMILLA Aracelis DO 04/01/25 Reported Medications Memantine Hydrochloride (Memantine HCl) 10 Mg Tab, 1 TAB PO DAILY for 90 Days, #90 03/30/25 Levothyroxine Sodium (Levothyroxine Sodium) 125 Mcg Tab, 1 TAB PO DAILY for 90 Days, #90 03/30/25 Donepezil Hydrochloride (DONEPEZIL HCL) 10 Mg Tab, 1 TAB PO DAILY for 90 Days, #90 03/30/25 Atorvastatin Calcium (ATORVASTATIN CALCIUM) 20 Mg Tab, 1 TAB PO DAILY for 90 Days, #90 03/30/25 Past Medical History Central Nervous System: Dementia Review of Systems Constitutional: Weakness H&P Exam Vital Signs Vital Signs Date Time Temp Pulse Resp B/P (MAP) Pulse Ox O2 Delivery O2 Flow Rate FiO2 04/01/25 09:00 97.8 69 18 104/58 (73) 96 97.8 04/01/25 08:00 Room Air* 0 21 General Appeara: Well developed Neuro/Mental St: Disoriented Labs/Xrays Labs Test 04/01/25 07:00 03/31/25 21:10 03/31/25 19:24 03/31/25 16:20 Range/Units White Blood Count 5.8 4.4-10.8 10^3/uL Red Blood Count 4.22 4.0-5.20 10^6/uL Hemoglobin 13.4 12.2-16.2 g/dL Hematocrit 39.3 36.0-46.0 % Mean Corpuscular Volume 93.1 80.0-100.0 fL Mean Corpuscular Hemoglobin 31.7 28.0-32.0 pg Mean Corpuscular Hemoglobin Concent 34.1 32.0-36.0 g/dL Red Cell Distribution Width 13.7 11.8-14.3 % Platelet Count 221 140-450 10^3/uL Mean Platelet Volume 7.9 6.9-10.8 fL Neutrophils (%) (Auto) 51.1 37.0-80.0 % Lymphocytes (%) (Auto) 36.3 10.0-50.0 % Monocytes (%) (Auto) 8.6 0.0-12.0 % Eosinophils (%) (Auto) 3.2 0.0-7.0 % Basophils (%) (Auto) 0.8 0.0-2.0 % Neutrophils # (Auto) 2.9 1.6-8.6 10 ^3/uL Lymphocytes # (Auto) 2.1 0.4-5.4 10 ^3/uL Monocytes # (Auto) 0.5 0-1.3 10 ^3/uL Eosinophils # (Auto) 0.2 0-0.8 10 ^3/uL Basophils # (Auto) 0 0-0.2 10 ^3/uL Nucleated Red Blood Cells 0.1 % Sodium Level 146 H 136-145 mmol/L Potassium Level 3.4 L 3.5-5.1 mmol/L Chloride Level 111 H 98-107 mmol/L Carbon Dioxide Level 22 20-31 mmol/L Anion Gap 13 5-15 Blood Urea Nitrogen 12 9-23 mg/dL Creatinine 1.07 H 0.550-1.02 mg/dL Glomerular Filtration Rate Calc 52 >90 mL/min BUN/Creatinine Ratio 11.2 10.0-20.0 Serum Glucose 83 74-106 mg/dL Calcium Level 9.2 8.7-10.4 mg/dL Total Bilirubin 1.0 0.2-1.0 mg/dL Aspartate Amino Transferase (AST) 28 <34 U/L Alanine Aminotransferase (ALT) 20 7-40 U/L Alkaline Phosphatase 81 46-116 U/L Total Protein 6.4 5.7-8.2 g/dL Albumin 4.1 3.2-4.8 g/dL Urine Color Light-yellow Yellow Urine Clarity Clear Clear Urine pH 6.0 5.0-9.0 Urine Specific Strang 1.012 1.001-1.035 Urine Protein Negative Negative Urine Ketones Negative Negative Urine Blood Trace H Negative /uL Urine Nitrite Negative Negative Urine Bilirubin Negative Negative Urine Urobilinogen Normal Negative mg/dL Urine Leukocyte Esterase Negative Negative /uL Urine RBC 2 0 - 4 /hpf Urine Microscopic WBC 1 0-5 /HPF Urine Squamous Epithelial Cells Few <5 /hpf Urine Bacteria None seen None Seen /hpf Urine Hyaline Casts Few 0 - 2 /lpf Urine Glucose Normal Normal mg/dL Troponin I High Sensitivity 36 *H </=34 ng/L Lactic Acid Level 1.4 0.4-2.0 mmol/L Test 03/31/25 15:20 Range/Units POC Glucose 98 70-106 mg/dl Assessment/Plan Primary Diagnosis 1. Metabolic Encephalopathy due to UTI and Dementia 2. UTI 3. NSTEMI Type 2 4. YUE due to VMN 5. Dementia Plan: - Admit to telemetry - Neurology consulted - MRI brain ordered without contrast - Ceftriaxone 1 g IV daily - Strict I's and O's - Plan to follow-up outpatient with cardiology regarding minimally elevated troponin. Decreased renal function contributing to elevation. No chest pain at this time. Will continue to monitor closely. - Blood cultures, urine cultures ordered - Full code Plan discussed with: Patient ARLENE ESCAMILLA DO Apr 01, 2025 10:40
--- NOTE | 2025-04-01 12:53 | DVH ---
PROCEDURE: MRI BRAIN HEAD WO CONTRAST INDICATION: AMS EXAM DATE: 04/01/2025 12:15 PM COMPARISON: None TECHNIQUE: MRI of the brain without intravenous contrast. FINDINGS: Diffusion weighted images of the brain demonstrate no evidence of acute infarction. There is no evidence of acute intracranial hemorrhage, extra-axial collection, mass effect, midline s hift, herniation or hydrocephalus. The ventricles, sulci and cisterns appear age appropriate. The signal intensities of the brain parenchyma are within normal limits. There are no signal abnormalities on the susceptibility weighted sequences. The major vascular flow voids are present. The visualized paranasal sinuses and mastoid air cells are clear. The surrounding soft tissues and o sseous structures are unremarkable. Partially empty sella. IMPRESSION: 1. No evidence of acute infarction, intracranial hemorrhage, mass effect or hydrocephalus. Partially empty sella.
[2025-04-01 13:00] VITALS: BP 128/79; PULSE 71; RESP 18; TEMP 98.3; O2SAT 95
--- NOTE | 2025-04-01 14:06 | DVH ---
INDICATION: UTI, rule out pyelo TECHNIQUE: Multiple real-time sonographic images of the kidneys and bladder were obtained. COMPARISON: None FINDINGS: The right kidney measures 8.6 cm in length. The right renal echogenicity, contour and cortical thickn ess are within normal limits. No hydronephrosis or large masses/calculi are seen. The left kidney measures 8.7 cm in length. The left renal echogenicity, contour, and cortical thickne ss are within normal limits. No hydronephrosis or large masses/calculi are seen. Bladder decompressed with Byrne catheter. IMPRESSION: 1. Unremarkable examination.
[2025-04-01] MEDS ORDERED: CIPR500T4 PO (15:55)
[2025-04-01] MEDS ORDERED: SODIUM CHLORIDE 0.9% 1,000 ML IV ONE (16:45)
[2025-04-01] MEDS: cefTRIAXone 1GM/50ML D5W 50 ML IV ONE (16:46)
--- NOTE | 2025-04-01 16:48 | DVHDS2 ---
Discharge Summary Date of Admission Mar 31, 2025 at 18:36 Date of Discharge: Apr 01, 2025 Labs/Diagnostic Data: Laboratory Results Test 04/01/25 07:00 03/31/25 21:10 03/31/25 19:24 03/31/25 16:20 White Blood Count 5.8 10^3/uL (4.4-10.8) Red Blood Count 4.22 10^6/uL (4.0-5.20) Hemoglobin 13.4 g/dL (12.2-16.2) Hematocrit 39.3 % (36.0-46.0) Mean Corpuscular Volume 93.1 fL (80.0-100.0) Mean Corpuscular Hemoglobin 31.7 pg (28.0-32.0) Mean Corpuscular Hemoglobin Concent 34.1 g/dL (32.0-36.0) Red Cell Distribution Width 13.7 % (11.8-14.3) Platelet Count 221 10^3/uL (140-450) Mean Platelet Volume 7.9 fL (6.9-10.8) Neutrophils (%) (Auto) 51.1 % (37.0-80.0) Lymphocytes (%) (Auto) 36.3 % (10.0-50.0) Monocytes (%) (Auto) 8.6 % (0.0-12.0) Eosinophils (%) (Auto) 3.2 % (0.0-7.0) Basophils (%) (Auto) 0.8 % (0.0-2.0) Neutrophils # (Auto) 2.9 10 ^3/uL (1.6-8.6) Lymphocytes # (Auto) 2.1 10 ^3/uL (0.4-5.4) Monocytes # (Auto) 0.5 10 ^3/uL (0-1.3) Eosinophils # (Auto) 0.2 10 ^3/uL (0-0.8) Basophils # (Auto) 0 10 ^3/uL (0-0.2) Nucleated Red Blood Cells 0.1 % Sodium Level 146 mmol/L (136-145) Potassium Level 3.4 mmol/L (3.5-5.1) Chloride Level 111 mmol/L (98-107) Carbon Dioxide Level 22 mmol/L (20-31) Anion Gap 13 (5-15) Blood Urea Nitrogen 12 mg/dL (9-23) Creatinine 1.07 mg/dL (0.550-1.02) Glomerular Filtration Rate Calc 52 mL/min (>90) BUN/Creatinine Ratio 11.2 (10.0-20.0) Serum Glucose 83 mg/dL (74-106) Calcium Level 9.2 mg/dL (8.7-10.4) Total Bilirubin 1.0 mg/dL (0.2-1.0) Aspartate Amino Transferase (AST) 28 U/L (<34) Alanine Aminotransferase (ALT) 20 U/L (7-40) Alkaline Phosphatase 81 U/L (46-116) Total Protein 6.4 g/dL (5.7-8.2) Albumin 4.1 g/dL (3.2-4.8) Thyroid Stimulating Hormone (TSH) 21.05 uIU/mL (0.55-4.78) Urine Color Light-yellow (Yellow) Urine Clarity Clear (Clear) Urine pH 6.0 (5.0-9.0) Urine Specific [place] 1.012 (1.001-1.035) Urine Protein Negative (Negative) Urine Ketones Negative (Negative) Urine Blood Trace /uL (Negative) Urine Nitrite Negative (Negative) Urine Bilirubin Negative (Negative) Urine Urobilinogen Normal mg/dL (Negative) Urine Leukocyte Esterase Negative /uL (Negative) Urine RBC 2 /hpf (0 - 4) Urine Microscopic WBC 1 /HPF (0-5) Urine Squamous Epithelial Cells Few /hpf (<5) Urine Bacteria None seen /hpf (None Seen) Urine Hyaline Casts Few /lpf (0 - 2) Urine Glucose Normal mg/dL (Normal) Troponin I High Sensitivity 36 ng/L (</=34) Lactic Acid Level 1.4 mmol/L (0.4-2.0) Test 03/31/25 15:20 POC Glucose 98 mg/dl (70-106) Other Laboratory Tests 04/01/25 07:00 Brief Hx & Hospital Course: Patient is an 85-year-old male with past medical history of dementia who was brought in after being found down in her yard by her family and confused. Patient was only alert and oriented to herself. Patient had a prior hospital visit 1 day prior for similar confusion. She had eloped at that time before receiving further medical care. She was treated for UTI at that time and noted some improvement after receiving IV antibiotics. Patient subsequently was noted to deteriorate neurologically and subsequently presented to the ER after aforementioned events. Patient arrived to the ER with vitals within normal limits. CBC did not reveal any leukocytosis. Chemistry panel was notable for YUE with creatinine of 1.31. Troponin was elevated at 46. Patient denied having any chest pain prior to her hospitalization or after. Urine showed some WBC cells which was noted to be positive during prior hospital visit as well. Patient was admitted for further evaluation for altered mental status and for treatment of UTI. Patient was treated with ceftriaxone and noted to improve significantly. Patient returned to baseline neurological status. Patient was transitioned to ciprofloxacin for 100 mg p.o. twice daily for additional 5 days on discharge. MRI brain without contrast done which did not reveal any CVA, hemorrhage or ischemia. Was notable for partial empty sella. Ultrasound renal was done which was normal. Patient's renal function improved prior to discharge with IV hydration. Discussed plan of care with family at bedside. Patient to follow-up with cardiology outpatient. Patient discharged in stable condition. Condition at Discharge: Good Final Diagnosis/Problems List 1. Metabolic Encephalopathy due to UTI and Dementia Secondary Diagnosis: 2. UTI 3. NSTEMI Type 2 4. YUE due to VMN 5. Dementia Discharge Disposition: Home Discharge Instruct/Medications Diet: Regular Activity: No Restrictions, As Tolerated Follow Up/Referral: Follow up with primary care doctor. Medications: Ciprofloxacin 500mg twice a day for 5 days. No need for additional IV antibiotics at this time. Discharge Statement: "Patient was advised to return to the ER or call 911 if any headaches, dizziness, shortness of breath, chest pain, abdominal pain, bleeding, fevers, or worsening of medical condition. Patient was counseled about treatment plan, medications, possible side effects, patientverbalized understanding. All questions were answered to the best of my ability. This discharge took greater then 30 minutes in planning, reviewing documentation, counseling the patient, and discussing with other team members." ASSESSMENT ASSESSMENT Assessment UTI ARLENE ESCAMILLA DO Apr 01, 2025 16:48
[2025-04-01 16:56] VITALS: TEMP 36.8
[2025-04-01 17:00] VITALS: BP 122/76; PULSE 66; RESP 17; TEMP 97.7; O2SAT 97
--- NOTE | 2025-04-01 20:03 | DVHINCON2 ---
Allergies: Coded Allergies: NO KNOWN ALLERGIES (Unverified , 03/29/25) Home Meds Active Scripts Ciprofloxacin Hcl (Ciprofloxacin Hcl) 500 Mg Tab, 1 TAB PO BID, #10 TAB 0 Refills Prov:ARLENE ESCAMILLA DO 04/01/25 Reported Medications Memantine Hydrochloride (Memantine HCl) 10 Mg Tab, 1 TAB PO DAILY for 90 Days, #90 03/30/25 Levothyroxine Sodium (Levothyroxine Sodium) 125 Mcg Tab, 1 TAB PO DAILY for 90 Days, #90 03/30/25 Donepezil Hydrochloride (DONEPEZIL HCL) 10 Mg Tab, 1 TAB PO DAILY for 90 Days, #90 03/30/25 Atorvastatin Calcium (ATORVASTATIN CALCIUM) 20 Mg Tab, 1 TAB PO DAILY for 90 Days, #90 03/30/25 Current Medications Current Medications Medications (Trade) Dose Ordered Sig/Alphonse Route PRN Reason Start Time Stop Time Status Last Admin Enoxaparin Sodium (Lovenox) 40 mg DAILY SC 04/01/25 10:00 04/01/25 19:08 DC 04/01/25 09:30 Vital Signs Vital Signs Date Time Temp Pulse Resp B/P (MAP) Pulse Ox O2 Delivery O2 Flow Rate FiO2 04/01/25 17:00 97.7 66 17 122/76 (91) 97 97.7 04/01/25 08:00 Room Air* 0 21 Labs/Diagnostic Data Labs Test 04/01/25 07:00 03/31/25 21:10 03/31/25 19:24 03/31/25 16:20 Range/Units White Blood Count 5.8 4.4-10.8 10^3/uL Red Blood Count 4.22 4.0-5.20 10^6/uL Hemoglobin 13.4 12.2-16.2 g/dL Hematocrit 39.3 36.0-46.0 % Mean Corpuscular Volume 93.1 80.0-100.0 fL Mean Corpuscular Hemoglobin 31.7 28.0-32.0 pg Mean Corpuscular Hemoglobin Concent 34.1 32.0-36.0 g/dL Red Cell Distribution Width 13.7 11.8-14.3 % Platelet Count 221 140-450 10^3/uL Mean Platelet Volume 7.9 6.9-10.8 fL Neutrophils (%) (Auto) 51.1 37.0-80.0 % Lymphocytes (%) (Auto) 36.3 10.0-50.0 % Monocytes (%) (Auto) 8.6 0.0-12.0 % Eosinophils (%) (Auto) 3.2 0.0-7.0 % Basophils (%) (Auto) 0.8 0.0-2.0 % Neutrophils # (Auto) 2.9 1.6-8.6 10 ^3/uL Lymphocytes # (Auto) 2.1 0.4-5.4 10 ^3/uL Monocytes # (Auto) 0.5 0-1.3 10 ^3/uL Eosinophils # (Auto) 0.2 0-0.8 10 ^3/uL Basophils # (Auto) 0 0-0.2 10 ^3/uL Nucleated Red Blood Cells 0.1 % Sodium Level 146 H 136-145 mmol/L Potassium Level 3.4 L 3.5-5.1 mmol/L Chloride Level 111 H 98-107 mmol/L Carbon Dioxide Level 22 20-31 mmol/L Anion Gap 13 5-15 Blood Urea Nitrogen 12 9-23 mg/dL Creatinine 1.07 H 0.550-1.02 mg/dL Glomerular Filtration Rate Calc 52 >90 mL/min BUN/Creatinine Ratio 11.2 10.0-20.0 Serum Glucose 83 74-106 mg/dL Calcium Level 9.2 8.7-10.4 mg/dL Total Bilirubin 1.0 0.2-1.0 mg/dL Aspartate Amino Transferase (AST) 28 <34 U/L Alanine Aminotransferase (ALT) 20 7-40 U/L Alkaline Phosphatase 81 46-116 U/L Total Protein 6.4 5.7-8.2 g/dL Albumin 4.1 3.2-4.8 g/dL Thyroid Stimulating Hormone (TSH) 21.05 H 0.55-4.78 uIU/mL Urine Color Light-yellow Yellow Urine Clarity Clear Clear Urine pH 6.0 5.0-9.0 Urine Specific [place] 1.012 1.001-1.035 Urine Protein Negative Negative Urine Ketones Negative Negative Urine Blood Trace H Negative /uL Urine Nitrite Negative Negative Urine Bilirubin Negative Negative Urine Urobilinogen Normal Negative mg/dL Urine Leukocyte Esterase Negative Negative /uL Urine RBC 2 0 - 4 /hpf Urine Microscopic WBC 1 0-5 /HPF Urine Squamous Epithelial Cells Few <5 /hpf Urine Bacteria None seen None Seen /hpf Urine Hyaline Casts Few 0 - 2 /lpf Urine Glucose Normal Normal mg/dL Troponin I High Sensitivity 36 *H </=34 ng/L Lactic Acid Level 1.4 0.4-2.0 mmol/L Test 03/31/25 15:20 Range/Units POC Glucose 98 70-106 mg/dl Microbiology Date/Time Source Procedure Growth Status 03/31/25 16:20 Blood Blood Culture - Preliminary NO GROWTH AFTER 24 HOURS OF INCUBATION. Resulted CORAZON SPENCER MD Apr 01, 2025 20:03
[2025-04-03 10:49] LABS: Folate (Folic Acid) 19.78 ng/mL (>5.38)
[2025-04-03 10:50] LABS: Free T4 (Free Thyroxine) 0.91 ng/dL (0.89-1.76)
--- NOTE | 2025-04-03 14:37 | ECG ---
[facility] Test Date: 2025-03-31 Test Time: 15:41:00 Pat Name: LORENA NAJERA Department: TRIAGE Room: 0296 B Gender: F Psychiatric Tech: ADAN : 1940 Requested By: SANDER MILLER Order Number: [id number] Reading MD: Alverto Briggs Measurements Intervals [place] Rate: 70 P: 38 RI: 202 QRS: -12 QRSD: 88 T: 7 QT: 405 QTc: 437 Interpretive Statements Sinus rhythm Low voltage, precordial leads Borderline T abnormalities, anterior leads Electronically Signed On 04-04-2025 17:29:08 PDT by Alverto Briggs Please click the below link to view image of tracing.
== END 2025-04-01 18:30 | disposition home or self-care (01) ==
LOC: ER 15:12 → OVERFLOW 18:36 → INTOOBSV 18:36 → WEST WING 21:40
PROVIDERS: ADMIT Student in an Organized Health Care Education/Training Program; ATTEND Student in an Organized Health Care Education/Training Program
DX: G93.41 Metabolic encephalopathy (principal); N39.0 Urinary tract infection, site not specified; N17.9 Acute kidney failure, unspecified; F03.90 Unspecified dementia, unspecified severity, without behavioral disturbance, psychotic disturbance, mood disturbance, and anxiety; I10 Essential (primary) hypertension; D84.9 Immunodeficiency, unspecified; R41.0 Disorientation, unspecified; E03.9 Hypothyroidism, unspecified; R53.1 Weakness; Z79.899 Other long term (current) drug therapy; Z98.890 Other specified postprocedural states
CPT/HCPCS: 36415; 70450; 70551; 71045; 76775; 80053; 81001; 82607; 82746; 82962; 83605; 84439; 84443; 84484; 85025; 87040; 93005; 96361; 96365; 96366; 96372; 99285; G0378; J0696; J1650; J7030